=== PATIENT | male | born 1970 | race Caucasian/White ===

== ENCOUNTER 2018-06-15 08:48 | Emergency (ER) | payer OTHER ==
[~2018-06-15] VITALS: Ht 172.7 cm; Wt 68.0 kg
[~2018-06-15 08:48] MED LIST: CEPH500 PO; CYCL10 PO; DIAZ5 PO; ERYT500 PO; HYDACE10B PO; HYDACE5 PO; HYDR1TAB94 PO; IBUP200 PO; IBUP800 PO; OXYACE5T PO; Percocet 10-321 EACH PO
== END 2018-06-15 11:15 | disposition home or self-care (01) ==
LOC: ER 08:48
DX: Z48.03 Encounter for change or removal of drains (principal); R91.1 Solitary pulmonary nodule; F17.200 Nicotine dependence, unspecified, uncomplicated; Z88.0 Allergy status to penicillin; Z88.8 Allergy status to other drugs, medicaments and biological substances
CPT/HCPCS: 71045; 71046; 99283-25